=== PATIENT | male | born 2000 | race Caucasian/White ===

== ENCOUNTER 2021-04-03 01:59 | Emergency (ER) | payer SELFPAY ==
[~2021-04-03] VITALS: Ht 175.3 cm; Wt 77.1 kg
[2021-04-03 01:59] VITALS: BP 156/90
--- NOTE | 2021-04-03 02:04 | NUR ---
PT BROUGHT TO BED 1 VIA [facility]ARC[facility]
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
--- NOTE | 2021-04-03 02:43 | NUR ---
PATIENT BIB [facility] [employer] [facility]. PATIENT EXAMINED BY DR. BERUMEN. PATIENT MEDICALLY CLEARED AND RELEASED IN CUSTODY IN STABLE CONDITION. ORIGINAL PRE-BOOK FORM GIVEN TO OFFICER HUSEYIN, #391
== END 2021-04-03 02:43 ==
LOC: MED 01:59
DX: R06.02 Shortness of breath (principal); Z02.89 Encounter for other administrative examinations; V89.2XXA Person injured in unspecified motor-vehicle accident, traffic, initial encounter; Y93.89 Activity, other specified; Y92.89 Other specified places as the place of occurrence of the external cause; Y99.8 Other external cause status
CPT/HCPCS: 99283